=== PATIENT | female | born 1995 | race Caucasian/White ===

== ENCOUNTER 2017-09-20 14:40 | Emergency (ER) | payer OTHER ==
[~2017-09-20] VITALS: Ht 180.3 cm; Wt 86.2 kg
[2017-09-20] MEDS ORDERED: NAPROSYN500 MG PO (15:19)
[2017-09-20] MEDS ORDERED: PENICILLIN-VK500 MG PO (15:19)
== END 2017-09-20 15:38 | disposition home or self-care (01) ==
LOC: ED 14:40
DX: K04.7 Periapical abscess without sinus (principal)